=== PATIENT | female | born 1985 | race American Indian/Alaskan Native ===

== ENCOUNTER 2017-07-08 18:49 | Emergency (ER) | payer OTHER ==
[2017-07-08 20:45] VITALS: BMI 23.0
--- NOTE | 2017-07-08 22:04 | ED PDOC ---
Arrival/HPI - General Chief Complaint: Lower Extremity Problem/Injury Time Seen by Provider: 07/08/17 22:00 Historian: Patient - History of Present Illness Narrative History of Present Illness (Text): 07/08/17 22:02 31-year-old female presents today with a one-week history of left lateral knee pain. Patient states the pain started one week ago while walking downstairs. Patient denies any trauma or injury. Patient states that the pain came on suddenly and is located to the lateral aspect of the knee. Patient states over the past week she has been applying BenGay and other home remedies without improvement in her symptoms. Patient states she has pain with ambulation as well with going downstairs. Patient has not taken Motrin/Tylenol or any anti- inflammatory medications for pain at home. The patient denies calf pain. Denies numbness weakness or tingling in the extremity. No other complaints Time/Duration: 1 week Symptom Onset: Sudden Symptom Course: Unchanged Quality: Aching, Stabbing Severity Level: 4 Past Medical History - Provider Review Nursing Documentation Reviewed: Yes - Travel History Have you recently traveled outside [place] w/in the past 3 mons?: No - Infectious Disease Hx of Infectious Diseases: None - Psychiatric Hx Substance Use: No - Anesthesia Hx Anesthesia: No Family/Social History - Physician Review Nursing Documentation Reviewed: Yes Family/Social History: Unknown Family HX Smoking Status: Never Smoked Hx Alcohol Use: No Hx Substance Use: No Allergies/Home Meds Allergies/Adverse Reactions: Allergies No Known Allergies Allergy (Verified 07/08/17 20:45) Review of Systems - Review of Systems Constitutional: absent: Fatigue, Fevers Respiratory: absent: SOB, Cough Cardiovascular: absent: Chest Pain, Palpitations Gastrointestinal: absent: Abdominal Pain, Nausea, Vomiting Musculoskeletal: Arthralgias Skin: absent: Rash, Pruritis Neurological: absent: Headache, Dizziness Physical Exam Vital Signs Reviewed: Yes Vital Signs Temp Pulse Resp BP Pulse Ox 07/08/17 18:50 98.1 F 75 18 97/62 L 97 Temperature: Afebrile Blood Pressure: Normal Pulse: Regular Respiratory Rate: Normal Appearance: Positive for: Well-Appearing, Non-Toxic, Comfortable Pain Distress: None Mental Status: Positive for: Alert and Oriented X 3 - Systems Exam Head: Present: Atraumatic Neck: Present: Normal Range of Motion Respiratory/Chest: Present: Clear to Auscultation Cardiovascular: Present: Regular Rate and Rhythm Lower Extremity: Present: NORMAL PULSES, Normal ROM, Tenderness (Left knee: There is tenderness noted to the lateral aspect of the knee. No edema no erythema. Full range of motion of the knee. No calf tenderness. Sensation and distal pulses intact.), Neurovascularly Intact. No: CALF TENDERNESS, Swelling, Erythema, Deformity Neurological: Present: GCS=15 Skin: Present: Warm, Dry, Normal Color. No: Rashes Psychiatric: Present: Alert, Oriented x 3 Medical Decision Making ED Course and Treatment: 07/08/17 22:04 Patient nontoxic well-appearing in no distress with stable vital signs X-rays of the knee: No fracture Patient refusing medications for pain Patient placed in knee immobilizer. Crutches given for ambulation. I discussed all results with patient advised to followup with the orthopedist for the next 2 days. Return if symptoms worsen persist or new symptoms develop. i advised the patient that although the xrays show no fracture; there is still a possibility for ligamentous or tendon injury the patient must see the orthopedist for further evaluation. Patient verbalizes understanding of discharge instructions and need for immediate followup. Impression: knee pain Motrin every 6 hours as needed for pain Rest, ice, compression, elevation Use crutches for ambulation Followup with the orthopedist within the next 2 days Followup with primary care physician within the next 2 days Return if symptoms worsen persist or if new symptoms develop 07/08/17 23:00 - RAD Interpretation Radiology Orders: 07/08/17 22:00 KNEE WITH PATELLA LEFT 3 VIEW [RAD] Stat Disposition/Present on Arrival - Present on Arrival Any Indicators Present on Arrival: No History of DVT/PE: No History of Uncontrolled Diabetes: No Urinary Catheter: No History of Decub. Ulcer: No History Surgical Site Infection Following: None - Disposition Have Diagnosis and Disposition been Completed?: Yes Diagnosis: Knee pain, acute Disposition: HOME/ ROUTINE Disposition Time: 23:01 Patient Plan: Discharge Condition: GOOD Discharge Instructions (ExitCare): Arthralgia (ED) Additional Instructions: Motrin every 6 hours as needed for pain Rest, ice, compression, elevation Use crutches for ambulation Followup with the orthopedist within the next 2 days Followup with primary care physician within the next 2 days Return if symptoms worsen persist or if new symptoms develop Prescriptions: Ibuprofen [Motrin] 600 mg PO Q6H PRN #20 tab PRN Reason: pain/fever reduction Referrals: Mario Harkins MD [Staff Provider] - Follow up with primary Mina Mckee DO [Staff Provider] - Follow up with primary Forms: [facility] (Maltese), WORK NOTE
[2017-07-08 23:24] VITALS: BP 115/60; PULSE 70; RESP 17; TEMP 98; O2SAT 98
--- NOTE | 2017-07-09 09:24 | RAD ---
PROCEDURE: Left Knee Radiographs. HISTORY: Pain. COMPARISON: None. FINDINGS: BONES: Normal. No fracture. JOINTS: Normal. No osteoarthritis. JOINT EFFUSION: None. OTHER FINDINGS: None. IMPRESSION: Normal radiographs of the left knee.
== END 2017-07-08 23:24 | disposition home or self-care (01) ==
LOC: ED 18:49
DX: M25.562 Pain in left knee (principal)